=== PATIENT | male | born 1980 | race African-American/Black ===

== ENCOUNTER 2024-11-12 11:16 | Inpatient (IN) | payer OTHER ==
[2024-11-12 11:58] VITALS: BMI 23.3
[2024-11-12] MEDS ORDERED: NICOTINE POLACRILEX 2 MG GUM BUC PRN (12:21)
[2024-11-12] MEDS ORDERED: BENZONATATE 200 MG CAPSULE PO PRN (12:21)
[2024-11-12] MEDS ORDERED: MAG HYDROX/AL HYDROX/SIMETH 30 ML UNIT-DOSE CUP PO PRN (12:21)
[2024-11-12] MEDS ORDERED: BENZOCAINE/MENTHOL (CHLORASEPTIC ) LOZENGE MM PRN (12:21)
[2024-11-12] MEDS ORDERED: NICOTINE POLACRILEX 2 MG LOZENGE BC PRN (12:21)
[2024-11-12] MEDS ORDERED: NALOXONE (NARCAN) HCL 4 MG/0.1 ML SPRAY NS PRN (12:21)
[2024-11-12] MEDS ORDERED: LOPERAMIDE HCL 2 MG CAPSULE PO PRN (12:21)
[2024-11-12] MEDS ORDERED: POLYETHYLENE GLYCOL (HEALTHYLAX) 3350 17 GM PACKET PO PRN (12:21)
[2024-11-12] MEDS ORDERED: MAGNESIUM HYDROX 2400MG/30ML ORAL SUSPENSION 30 ML CUP PO PRN (12:21)
[2024-11-12] MEDS ORDERED: IBUPROFEN 600 MG TABLET (FP) PO PRN (12:21)
[2024-11-12] MEDS ORDERED: guaiFENesin 600 MG TABLET.ER (FP) PO PRN (12:21)
[2024-11-12] MEDS ORDERED: IBUPROFEN 400 MG TABLET (FP) PO PRN (12:21)
[2024-11-12] MEDS: MELATONIN 5 MG TABLETS PO SCH (22:23)
[2024-11-12] MEDS: THIAMINE 100 MG TABLET PO SCH (22:23)
[2024-11-13] MEDS: PRENATAL VITAMINS W/ FOLIC ACID TABLET (FP) PO SCH (11:01)
[2024-11-13 11:30] LABS: POTASSIUM 4.7 mmol/L (3.5-5.1)
[2024-11-13 11:32] LABS: HEMATOCRIT 42.3 % (40.1-51.0); HEMOGLOBIN 13.5 g/dL (13.7-17.5); MCHC 31.9 g/dl (32.3-36.5); MEAN CELL VOLUME 103.4 fl (79.0-92.2); MEAN PLT VOLUME 10.5 fl (9.4-12.4); PLATELET COUNT 242 x10^3/uL (163-337); RDW 11.7 % (12.1-15.9)
[2024-11-13 11:36] LABS: ALBUMIN 3.2 g/dl (3.4-5.0); BLOOD UREA NITROGEN 14.6 mg/dL (7-18); CALCIUM 9.2 mg/dL (8.5-10.1)
[2024-11-13 11:39] LABS: CREATININE 0.9 mg/dL (0.55-1.3)
[2024-11-13 11:41] LABS: BILIRUBIN,TOTAL 0.4 mg/dL (0.2-1); TOT PROT 6.3 g/dl (6.4-8.2)
[2024-11-13 12:00] LABS: SYPHILIS W/ RPR CONF NON-REACTIVE (NONREACTIVE)
[2024-11-13 12:30] LABS: HCV DIAGNOSTIC IN-HOUSE W/RFLX NON-REACTIVE (NONREACTIVE)
[2024-11-13 23:36] LABS: PH,URINE 7.5 (5.0-8.0); URINE APPEARANCE CLEAR; URINE BILIRUBIN NEGATIVE (NEGATIVE); URINE COLOR YELLOW; URINE GLUCOSE (UA) NEGATIVE (NEGATIVE); URINE KETONE NEGATIVE (NEGATIVE); URINE LEUK ESTERASE NEGATIVE (NEGATIVE); URINE NITRITE NEGATIVE (NEGATIVE); URINE PROTEIN NEGATIVE (NEGATIVE)
[2024-11-15] MEDS: NALTREXONE HCL 50 MG TABLET PO ONE (17:17)
[2024-11-15] MEDS: CYANOCOBALAMIN 1,000 MCG TABLET (FP) PO SCH (18:25)
[2024-11-15] MEDS: MELATONIN 5 MG TABLETS PO SCH (21:20)
[2024-11-15] MEDS: BACLOFEN 10 MG TABLET (FP) PO SCH (21:20)
[2024-11-18] MEDS: SALICYLIC ACID (WART REMOVER) 9 ML LIQUID TP SCH (10:00)
[2024-11-21] MEDS: ACETAMINOPHEN 325 MG TABLET (FP) PO PRN (16:27)
[2024-11-22] MEDS: BACITRACIN 0.9 GM PACKET TP SCH (12:07)
[2024-11-23 05:53] VITALS: RESP 16
[2024-11-26 06:18] VITALS: BP 142/86; PULSE 77; TEMP 97.3
== END 2024-11-26 10:01 | disposition home or self-care (01) | DRG 772 ==
LOC: YASAS 11:16 → Y3NR 13:17 → Y3W 11-14 10:31
PROVIDERS: ADMIT Psychiatry & Neurology Pain Medicine; ATTEND Psychiatry & Neurology Pain Medicine
PROC: HZ42ZZZ Group Counseling for Substance Abuse Treatment, Cognitive-Behavioral (ICD-10-PCS; principal; 2024-11-12)
DX: F14.20 Cocaine dependence, uncomplicated (principal); F10.20 Alcohol dependence, uncomplicated; F12.20 Cannabis dependence, uncomplicated; F17.210 Nicotine dependence, cigarettes, uncomplicated; D53.1 Other megaloblastic anemias, not elsewhere classified; L84 Corns and callosities
CPT/HCPCS: 36415; 80053; 80305; 80307; 81003; 85027; 86780; 86803; 87811; 93005; 93010; J0475